=== PATIENT | female | born 1985 | race Caucasian/White ===

== ENCOUNTER 2017-05-18 09:05 | Inpatient (IN) | payer MEDICAID ==
[2017-05-18] MEDS ORDERED: MISOPROSTOL 200 MCG TAB PR ×2 (10:00→13:30)
[2017-05-18] MEDS ORDERED: METHYLERGONOVINE 0.2 MG INJ IM ×2 (10:00→13:30)
[2017-05-18] MEDS ORDERED: CARBOPROST 250 MCG INJ IM ×2 (10:00→13:30)
[2017-05-18] MEDS ORDERED: OXYTOCIN 30 UNITS/LR 500 ML IV ×2 (10:00→13:30)
[2017-05-18] MEDS: AMPICILLIN 2 GM/NS (PMX) 100 ML IV (10:00)
[2017-05-18] MEDS ORDERED: BUTORPHANOL 2 MG INJ IV (10:00)
[2017-05-18] MEDS: LIDOCAINE 1% (MPF) 30 ML INJ INJ (10:16)
[2017-05-18] MEDS: LACTATED RINGER'S 1,000 ML IV (10:16)
[2017-05-18] MEDS: OXYTOCIN 30 UNITS/LR 500 ML IV ×3 (10:20→13:13)
[2017-05-18] MEDS: IBUPROFEN 600 MG TAB PO (10:22)
[2017-05-18 10:39] LABS: ADD MAN DIFF? NO
[2017-05-18 10:48] LABS: WHITE BLOOD COUNT 14.9 10^3/ul (4.8-10.8)
[2017-05-18 10:48] LABS: BASOPHILS % 0.2 % (0.0-2.0); EOSINOPHILS # 0.1 10^3/ul (0.0-0.5); EOSINOPHILS % 0.8 % (0.0-7.0); HEMATOCRIT 36.6 % (37.0-47.0); LYMPHOCYTES # 2.5 10^3/ul (0.8-2.9); LYMPHOCYTES % 16.7 % (15.0-51.0); MEAN CORPUSCULAR HGB CONC 32.8 g/dl (32.0-37.0); MEAN CORPUSCULAR VOLUME 85.3 fl (82.0-101.0); MEAN PLATELET VOLUME 10.9 fl (7.4-10.4); MONOCYTE # 0.8 10^3/ul (0.3-0.9); MONOCYTES % 5.3 % (0.0-11.0); NEUTROPHIL # 11.4 10^3/ul (1.6-7.5); NEUTROPHILS % 76.3 % (39.0-77.0); PLATELET COUNT 234 10^3/UL (140-415); RED BLOOD COUNT 4.29 10^6/ul (4.20-5.40); RED CELL DISTRIBUTION WIDTH 12.7 % (11.5-14.5)
[2017-05-18 11:06] LABS: INR 0.93; PROTIME 12.6 Sec (11.9-14.9)
[2017-05-18 11:07] LABS: PARTIAL THROMBOPLASTIN TIME 26.5 Sec (25.0-35.0)
[2017-05-18 11:36] LABS: HEPATITIS B SURFACE ANTIGEN NEGATIVE (NEGATIVE)
[2017-05-18] MEDS: LACTATED RINGER'S 1,000 ML IV* ×2 (13:13→21:13)
[2017-05-18] MEDS ORDERED: ZOLPIDEM 5 MG TAB PO (13:30)
[2017-05-18] MEDS ORDERED: ACETAMINOPHEN 325 MG TAB PO (13:30)
[2017-05-18] MEDS ORDERED: DIPHENHYDRAMINE 25 MG CAP PO (13:30)
[2017-05-18] MEDS ORDERED: HYDROCODONE/APAP (5/325) TAB PO (13:30)
[2017-05-18] MEDS ORDERED: MAGNESIUM HYDROXIDE 30ML CUP PO (13:30)
[2017-05-18] MEDS ORDERED: AMPICILLIN 1 GM/NS (PMX) 50 ML IV (14:00)
[2017-05-18] MEDS: LANOLIN 7 GM TUBE TOP (15:51)
[2017-05-18] MEDS: BENZOCAINE 20% 56 ML SPRAY TOP (15:51)
[2017-05-18] MEDS: WITCH HAZEL/GLYCERIN PAD PR (15:51)
[2017-05-18 17:30] LABS: RAPID PLASMA REAGIN NONREACTIVE (NR)
[2017-05-18] MEDS: IBUPROFEN 800 MG TAB PO ×2 (18:00→23:26)
[2017-05-19] MEDS: LACTATED RINGER'S 1,000 ML IV* ×3 (05:13→21:13)
[2017-05-19] MEDS: IBUPROFEN 800 MG TAB PO ×3 (05:39→17:25)
[2017-05-19 09:19] LABS: ADD MAN DIFF? NO
[2017-05-19 09:24] LABS: WHITE BLOOD COUNT 12.9 10^3/ul (4.8-10.8)
[2017-05-19 09:24] LABS: BASOPHILS % 0.3 % (0.0-2.0); EOSINOPHILS # 0.2 10^3/ul (0.0-0.5); EOSINOPHILS % 1.6 % (0.0-7.0); HEMATOCRIT 31.8 % (37.0-47.0); HEMOGLOBIN 10.5 g/dl (12.0-16.0); LYMPHOCYTES # 2.8 10^3/ul (0.8-2.9); LYMPHOCYTES % 21.6 % (15.0-51.0); MEAN CORPUSCULAR HEMOGLOBIN 28.2 pg (29.0-33.0); MEAN CORPUSCULAR VOLUME 85.3 fl (82.0-101.0); MEAN PLATELET VOLUME 10.7 fl (7.4-10.4); MONOCYTE # 0.7 10^3/ul (0.3-0.9); NEUTROPHIL # 9.1 10^3/ul (1.6-7.5); NEUTROPHILS % 70.8 % (39.0-77.0); PLATELET COUNT 209 10^3/UL (140-415); RED BLOOD COUNT 3.73 10^6/ul (4.20-5.40); RED CELL DISTRIBUTION WIDTH 12.9 % (11.5-14.5)
[2017-05-19] MEDS: SENNA/DOCUSATE NA (8.6MG/50MG) TAB PO (21:39)
[2017-05-20] MEDS: IBUPROFEN 800 MG TAB PO ×3 (01:00→12:26)
[2017-05-20] MEDS: MEASLES,MUMPS,RUBELLA VACCINE INJ SC* (09:00)
[2017-05-20] MEDS: VARICELLA VACCINE LIVE/PF 1,350 UNIT/0.5 ML ML SC* (09:00)
[2017-05-20] MEDS: DIPHTH/TET/ACEL PERTUSS (ADULT) 0.5 ML VIAL IM* (09:00)
== END 2017-05-20 13:30 | disposition home or self-care (01) | DRG 775 ==
LOC: OBT 09:05 → L-D 09:07 → OBT 09:35 → L-D 09:30 → PP1 12:06
PROVIDERS: Obstetrics & Gynecology
PROC: 10E0XZZ Delivery of Products of Conception, External Approach (ICD-10-PCS; principal; 2017-05-18)
PROC: 0HQ9XZZ Repair Perineum Skin, External Approach (ICD-10-PCS; 2017-05-18)
PROC: 3E033VJ Introduction of Other Hormone into Peripheral Vein, Percutaneous Approach (ICD-10-PCS; 2017-05-18)
DX: O70.0 First degree perineal laceration during delivery (principal); Z37.0 Single live birth; Z3A.37 37 weeks gestation of pregnancy
CPT/HCPCS: 85025; 85610; 85730; 86592; 86850; 86900; 86901; 87340